=== PATIENT | male | born 1970 | race Caucasian/White ===

== ENCOUNTER 2019-05-20 22:22 | Emergency (ER) | payer SELFPAY ==
[2019-05-20] MEDS ORDERED: HYDROmorphone 2 MG/ML Syringe IVPUSH ONE ×2 (22:30→22:57)
[2019-05-20] MEDS ORDERED: Ondansetron 4 MG/2 ML SDV IVPUSH ONE (22:30)
[2019-05-20] MEDS ORDERED: Sodium Chloride 0.9% 1,000 ML IV ONE (22:31)
[2019-05-20] MEDS ORDERED: Ketorolac 30 MG/ML SDV IVPUSH ONE (22:33)
--- NOTE | 2019-05-20 22:37 | EDM.PDOC ---
<Alexandra Tomas - Last Filed: 05/21/19 01:54> ED HPI GENERAL MEDICAL PROBLEM - General Stated Complaint: PT HAS BODY PAIN Time Seen by Provider: 05/20/19 22:32 - History of Present Illness INITIAL COMMENTS - FREE TEXT/NARRATIVE: This is Dr. Tomas dictating addendum note as I am the attending supervising on this case and I assumed care of this case at 12 midnight. This case was called as a trauma alert as there was a high mechanism of force with the fall. Dr. Fay is aware of this case and is in fact in the ED to quickly evaluate the patient and to review the CT scans. She was made aware of this case due to the fact that the patient was resisting laying down due to significant pain and anxiety. After receiving Dilaudid Toradol Ativan and Haldol he was able to lay down. The scans have been reviewed briefly by Dr. Fay and formal reports will be called to her as needed pending those results. The patient is much more comfortable here in the ED and he will be given maintenance fluids until we are further able to obtain these testing results. Please add to physical exam above the back exam which revealed no midline step- offs tenderness or defects of the thoracic or lumbar spine no posterior rib or posterior pelvis tenderness and no visible evidence of any contusion abrasion or ecchymosis. After the patient returned from CT and I started reviewing the CT scan images I personally examined the patient and I have discussed the CT scan findings with the patient. The patient has no midline step-offs tenderness or defects of the cervical spine and he says that the findings that I am relaying to him about his spinal stenosis and disc disease is not new to him. He has no upper extremity weakness numbness or tingling and has full range of motion of his upper extremities. He has full motor and sensory of his lower extremities as well but he has discomfort with movement of his left leg. On palpation of his pelvis the ring appears to be stable but there is palpable pubic diastases and there is no scrotal hematoma or priapism. The patient has tenderness in the left groin area as well without any hematoma or swelling and he has actually no abdominal tenderness distention or issues. The patient had his c-collar removed by me in light of his lack of tenderness on exam and that the findings on CAT scan are not new or different. The patient denies alcohol use this evening and it is unclear if the patient had any loss of consciousness from his report and EMS report and if there was any it was very brief. Telemetry nursing and me that he had pain when he was sitting on the ball and a bull was bucking and moving and the pain got worse after the fall. I discussed this case with the trauma surgeon at at 1:16 AM, Dr. Jones, who feels that this is an orthopedics case and that from a trauma perspective she does not have much input. I discussed this case with the orthopedic surgeon at , Dr. Aponte, at 1:24 AM. He would like to review the images to see what his care plan would be before we send him to [facility] and [place]. I am currently awaiting his return phone call. He feels that the patient should have a trauma consult and is unsure if that will be done by his trauma surgeon or by Dr. Fay. I will await his return phone call to make that decision a determination for transfer and further care. The patient is aware of these conversations and concerns with the CT scan findings. C- Collar was replaced by nursing due to the mechanism of injury and the fact that the patient is being transferred. 0140: Dr Aponte recontacted me and said that at this point he is reviewing the images but feels that the patient should be transferred to [facility] under the trauma service and he will evaluate the patient and the CT scans once he is clear from a trauma perspective and discussed it with the special pelvic surgeon who is not currently shock absorption floor layer. I discussed this case with the ER physician, Dr. Huynh, at 1:47 AM who is aware of my conversations with the trauma surgeon and orthopedics at his hospital and he is accepting of the transfer. Ground ambulance will be arranged as the patient is hemodynamically stable. Patient is receiving maintenance LR IV fluids and is nothing by mouth and has received more pain medication. All images have been pushed to the receiving hospital and all labs will also be forwarded. Critical care time including procedures:45min Dr. Fay our trauma surgeon was involved in this case earlier but not did not physically examine the patient Impression: Pelvic injury, left SI joint and pubic symphysis status post blunt trauma Incidental findings on CAT scans in abdomen such as cholelithiasis and nephrolithiasis, extensive disc disease in the cervical spine with history of same stable - Related Data Allergies Allergy/AdvReac Type Severity Reaction Status Date / Time No Known Allergies Allergy Verified 05/20/19 22:50 Home Meds: Home Meds . [No Known Home Meds] 05/20/19 [History] ED ROS GENERAL - Review of Systems Review Of Systems: ROS reveals no pertinent complaints other than HPI. Course - Vital Signs Last Recorded V/S: Last Vital Signs Temp 35.9 C 05/21/19 02:00 Pulse 104 H 05/21/19 02:30 Resp 16 05/21/19 02:30 BP 105/53 L 05/21/19 02:30 Pulse Ox 92 L 05/21/19 02:30 - Orders/Labs/Meds Labs: Laboratory Tests 05/20/19 05/20/19 05/20/19 Range/Units 22:38 22:38 22:38 WBC 17.40 H (4.0-11.0) K/uL RBC 4.86 (4.50-5.90) M/uL Hgb 15.2 (13.0-17.0) g/dL Hct 43.9 (38.0-50.0) % MCV 90.3 (80.0-98.0) fL MCH 31.3 (27.0-32.0) pg MCHC 34.6 (31.0-37.0) g/dL RDW Std Deviation 43.8 (28.0-62.0) fl RDW Coeff of Leroy 13 (11.0-15.0) % Plt Count 341 (150-400) K/uL MPV 9.90 (7.40-12.00) fL Neut % (Auto) 78.3 (48.0-80.0) % Lymph % (Auto) 14.7 L (16.0-40.0) % [place] % (Auto) 6.7 (0.0-15.0) % Eos % (Auto) 0.1 (0.0-7.0) % Baso % (Auto) 0.2 (0.0-1.5) % Neut # (Auto) 13.6 H (1.4-5.7) K/uL Lymph # (Auto) 2.6 H (0.6-2.4) K/uL [place] # (Auto) 1.2 H (0.0-0.8) K/uL Eos # (Auto) 0.0 (0.0-0.7) K/uL Baso # (Auto) 0.0 (0.0-0.1) K/uL Nucleated RBC % 0.0 /100WBC Nucleated RBCs # 0 K/uL INR 1.07 Sodium 141 (136-148) mmol/L Potassium 3.0 L (3.5-5.1) mmol/L Chloride 104 (98-107) mmol/L Carbon Dioxide 22.9 (21.0-32.0) mmol/L BUN 22 H (7.0-18.0) mg/dL Creatinine 1.6 H (0.8-1.3) mg/dL Est Cr Clr Drug Dosing TNP Estimated GFR (MDRD) 46.6 ml/min Glucose 160 H (74-106) mg/dL Calcium 9.1 (8.5-10.1) mg/dL Total Bilirubin 0.8 (0.2-1.0) mg/dL AST 22 (15-37) IU/L ALT 32 (14-63) IU/L Alkaline Phosphatase 60 (46-116) U/L Creatine Kinase 351 H (26-308) U/L Total Protein 7.8 (6.4-8.2) g/dL Albumin 4.6 (3.4-5.0) g/dL Globulin 3.2 (2.6-4.0) g/dL Albumin/Globulin Ratio 1.4 (0.9-1.6) Lipase 102 (73-393) U/L Urine Color Urine Appearance Urine pH (5.0-8.0) Ur Specific [place] (1.001-1.035) Urine Protein (NEGATIVE) mg/dL Urine Glucose (UA) (NEGATIVE) mg/dL Urine Ketones (NEGATIVE) mg/dL Urine Occult Blood (NEGATIVE) Urine Nitrite (NEGATIVE) Urine Bilirubin (NEGATIVE) Urine Urobilinogen (<2.0) EU/dL Ur Leukocyte Esterase (NEGATIVE) Urine RBC (0-2/HPF) Urine WBC (0-5/HPF) Ur Epithelial Cells (NONE-FEW) Urine Bacteria (NEGATIVE) Urine Mucus (NONE-MOD) 05/21/19 Range/Units 02:15 WBC (4.0-11.0) K/uL RBC (4.50-5.90) M/uL Hgb (13.0-17.0) g/dL Hct (38.0-50.0) % MCV (80.0-98.0) fL MCH (27.0-32.0) pg MCHC (31.0-37.0) g/dL RDW Std Deviation (28.0-62.0) fl RDW Coeff of Leroy (11.0-15.0) % Plt Count (150-400) K/uL MPV (7.40-12.00) fL Neut % (Auto) (48.0-80.0) % Lymph % (Auto) (16.0-40.0) % [place] % (Auto) (0.0-15.0) % Eos % (Auto) (0.0-7.0) % Baso % (Auto) (0.0-1.5) % Neut # (Auto) (1.4-5.7) K/uL Lymph # (Auto) (0.6-2.4) K/uL [place] # (Auto) (0.0-0.8) K/uL Eos # (Auto) (0.0-0.7) K/uL Baso # (Auto) (0.0-0.1) K/uL Nucleated RBC % /100WBC Nucleated RBCs # K/uL INR Sodium (136-148) mmol/L Potassium (3.5-5.1) mmol/L Chloride (98-107) mmol/L Carbon Dioxide (21.0-32.0) mmol/L BUN (7.0-18.0) mg/dL Creatinine (0.8-1.3) mg/dL Est Cr Clr Drug Dosing Estimated GFR (MDRD) ml/min Glucose (74-106) mg/dL Calcium (8.5-10.1) mg/dL Total Bilirubin (0.2-1.0) mg/dL AST (15-37) IU/L ALT (14-63) IU/L Alkaline Phosphatase (46-116) U/L Creatine Kinase (26-308) U/L Total Protein (6.4-8.2) g/dL Albumin (3.4-5.0) g/dL Globulin (2.6-4.0) g/dL Albumin/Globulin Ratio (0.9-1.6) Lipase (73-393) U/L Urine Color YELLOW Urine Appearance SLT CLOUDY Urine pH 5.5 (5.0-8.0) Ur Specific [place] 1.020 (1.001-1.035) Urine Protein NEGATIVE (NEGATIVE) mg/dL Urine Glucose (UA) NEGATIVE (NEGATIVE) mg/dL Urine Ketones 40 H (NEGATIVE) mg/dL Urine Occult Blood MODERATE H (NEGATIVE) Urine Nitrite NEGATIVE (NEGATIVE) Urine Bilirubin NEGATIVE (NEGATIVE) Urine Urobilinogen 1.0 (<2.0) EU/dL Ur Leukocyte Esterase NEGATIVE (NEGATIVE) Urine RBC 35-40 (0-2/HPF) Urine WBC 0-2 (0-5/HPF) Ur Epithelial Cells OCCASIONAL (NONE-FEW) Urine Bacteria RARE (NEGATIVE) Urine Mucus LIGHT (NONE-MOD) Meds: Medications Discontinued Medications Generic Name Dose Route Start Last Admin Trade Name Freq PRN Reason Stop Dose Admin Haloperidol Lactate 5 mg 05/20/19 23:29 05/20/19 23:35 Haldol IM 05/20/19 23:30 5 mg ONETIME ONE Administration Hydromorphone HCl 1 mg 05/20/19 22:30 05/20/19 22:36 Dilaudid IVPUSH 05/20/19 22:31 1 mg ONETIME ONE Administration Hydromorphone HCl 0.5 mg 05/20/19 22:57 05/20/19 23:03 Dilaudid IVPUSH 05/20/19 22:58 0.5 mg ONETIME ONE Administration Hydromorphone HCl 1 mg 05/21/19 01:37 05/21/19 01:42 Dilaudid IVPUSH 05/21/19 01:38 1 mg ONETIME ONE Administration Sodium Chloride 1,000 mls @ 999 mls/hr 05/20/19 22:31 05/20/19 22:36 Normal Saline IV 05/20/19 23:31 999 mls/hr STAT ONE Administration Sodium Chloride 1,000 mls @ 150 mls/hr 05/21/19 00:15 Normal Saline IV ASDIRECTED COSTA Lactated Ringer's 1,000 mls @ 150 mls/hr 05/21/19 01:00 05/21/19 01:00 Ringers, Lactated IV 150 mls/hr ASDIRECTED COSTA Administration Iopamidol 100 ml 05/21/19 00:12 05/21/19 00:12 Isovue Multipack-370 (76%) IVPUSH 05/21/19 00:13 100 ml ONETIME STA Administration Ketorolac Tromethamine 30 mg 05/20/19 22:33 05/20/19 22:37 Toradol IVPUSH 05/20/19 22:34 30 mg ONETIME ONE Administration Lorazepam 1 mg 05/20/19 23:14 05/20/19 23:19 Ativan IVPUSH 05/20/19 23:15 1 mg ONETIME ONE Administration Ondansetron HCl 4 mg 05/20/19 22:30 05/20/19 22:36 Zofran IVPUSH 05/20/19 22:31 4 mg ONETIME ONE Administration Departure - Departure Time of Disposition: 01:58 Disposition: DC/Tfer to Acute Hospital 02 Condition: Fair Clinical Impression: Pelvic injury Qualifiers: Encounter type: initial encounter Qualified Code(s): S39.93XA - Unspecified injury of pelvis, initial encounter - Discharge Information Referrals: PCP,None [Primary Care Provider] - Forms: ED Department Discharge <HudsonNataly - Last Filed: 05/21/19 09:58> ED HPI GENERAL MEDICAL PROBLEM - General Source of Information: Reports: Patient History Limitations: Reports: No Limitations - History of Present Illness INITIAL COMMENTS - FREE TEXT/NARRATIVE: HISTORY AND PHYSICAL: History of present illness: Patient is a 48-year-old male presents to the ED today via EMS with concern of loss of consciousness, and low back pain/hip pain after patient was riding a bull and fell off the bed. Patient is not typically a provider was riding a bull for a lorena event. Patient states he does not remember what happened but states [facility] before EMS was called. Patient states he is not sure how long he was unconscious for but told that it was brief. Patient states his only complaint today in the ED is left-sided hip/low back pain. Patient denies fever, chills, chest pain, shortness of breath, or cough. Denies headache, neck stiff ness, change in vision. Denies nausea, vomiting, abdominal pain, diarrhea, constipation, or dysuria. Review of systems: As per history of present illness and below otherwise all systems reviewed and negative. Past medical history: As per history of present illness and as reviewed below otherwise noncontributory. Surgical history: As per history of present illness and as reviewed below otherwise noncontributory. Social history: See social history for further information Family history: As per history of present illness and as reviewed below otherwise noncontributory. Physical exam: General: Patient is alert, oriented, and in no acute distress. Patient sitting on exam table with full body airsplint in place from EMS and cervical collar in sitting position. HEENT: Atraumatic, normocephalic, pupils equal and reactive bilaterally, negative for conjunctival pallor or scleral icterus, mucous membranes moist, TMs normal bilaterally, throat clear, neck supple, nontender, trachea midline. No drooling or trismus noted. No meningeal signs. No hot potato voice noted. Lungs: Clear to auscultation, breath sounds equal bilaterally, chest nontender. Heart: S1S2, regular rate and rhythm without overt murmur Abdomen: Soft, nondistended, nontender. Negative for masses or hepatosplenomegaly. Negative for costovertebral tenderness. Pelvis: Stable nontender. Genitourinary: Deferred. Rectal: Deferred. Skin: Intact, warm, dry. No lesions or rashes noted. Extremities/musculoskeletal: Negative for cords or calf pain. Neurovascular unremarkable. No obvious deformity of bilateral upper or bilateral lower extremities. No obvious deformity of complete spine. No step offs, crepitus, or point tenderness to palpation of complete spine / spinous processes. Neuro: Awake, alert, oriented. Cranial nerves II through XII unremarkable. Cerebellum unremarkable. Motor and sensory unremarkable throughout. Exam nonfocal. Notes: Trauma alert was called in route to ED. Dr. Tomas directly involved in patient care. Patient is adamant about not laying on his back and we are having difficulties getting him on his back for imaging. Dr. Tomas has assumed care of patient and will follow all remaining diagnostics and disposition. Diagnostics: Head CT, cervical spine CT, thoracic CT, lumbar CT, chest CT, abdominal pelvic CT, CBC, CMP, CPK, lipase, INR, UA Therapeutics: Dilaudid, Zofran, Toradol, Ativan, Haldol Prescription: Impression: Left sided hip pain Low back pain Plan: Definitive disposition and diagnosis as appropriate pending reevaluation and review of above. left side body & back area Pain Score (Numeric/FACES): 10 ED ROS GENERAL - Review of Systems Review Of Systems: ROS reveals no pertinent complaints other than HPI. ED EXAM, GENERAL - Physical Exam Exam: See Below (See dictation) Course - Vital Signs Last Recorded V/S: Last Vital Signs Temp 35.9 C 05/21/19 02:00 Pulse 104 H 05/21/19 02:30 Resp 16 05/21/19 02:30 BP 105/53 L 05/21/19 02:30 Pulse Ox 92 L 05/21/19 02:30 - Orders/Labs/Meds Labs: Laboratory Tests 05/20/19 05/20/19 05/20/19 Range/Units 22:38 22:38 22:38 WBC 17.40 H (4.0-11.0) K/uL RBC 4.86 (4.50-5.90) M/uL Hgb 15.2 (13.0-17.0) g/dL Hct 43.9 (38.0-50.0) % MCV 90.3 (80.0-98.0) fL MCH 31.3 (27.0-32.0) pg MCHC 34.6 (31.0-37.0) g/dL RDW Std Deviation 43.8 (28.0-62.0) fl RDW Coeff of Leroy 13 (11.0-15.0) % Plt Count 341 (150-400) K/uL MPV 9.90 (7.40-12.00) fL Neut % (Auto) 78.3 (48.0-80.0) % Lymph % (Auto) 14.7 L (16.0-40.0) % [place] % (Auto) 6.7 (0.0-15.0) % Eos % (Auto) 0.1 (0.0-7.0) % Baso % (Auto) 0.2 (0.0-1.5) % Neut # (Auto) 13.6 H (1.4-5.7) K/uL Lymph # (Auto) 2.6 H (0.6-2.4) K/uL [place] # (Auto) 1.2 H (0.0-0.8) K/uL Eos # (Auto) 0.0 (0.0-0.7) K/uL Baso # (Auto) 0.0 (0.0-0.1) K/uL Nucleated RBC % 0.0 /100WBC Nucleated RBCs # 0 K/uL INR 1.07 Sodium 141 (136-148) mmol/L Potassium 3.0 L (3.5-5.1) mmol/L Chloride 104 (98-107) mmol/L Carbon Dioxide 22.9 (21.0-32.0) mmol/L BUN 22 H (7.0-18.0) mg/dL Creatinine 1.6 H (0.8-1.3) mg/dL Est Cr Clr Drug Dosing TNP Estimated GFR (MDRD) 46.6 ml/min Glucose 160 H (74-106) mg/dL Calcium 9.1 (8.5-10.1) mg/dL Total Bilirubin 0.8 (0.2-1.0) mg/dL AST 22 (15-37) IU/L ALT 32 (14-63) IU/L Alkaline Phosphatase 60 (46-116) U/L Creatine Kinase 351 H (26-308) U/L Total Protein 7.8 (6.4-8.2) g/dL Albumin 4.6 (3.4-5.0) g/dL Globulin 3.2 (2.6-4.0) g/dL Albumin/Globulin Ratio 1.4 (0.9-1.6) Lipase 102 (73-393) U/L Urine Color Urine Appearance Urine pH (5.0-8.0) Ur Specific [place] (1.001-1.035) Urine Protein (NEGATIVE) mg/dL Urine Glucose (UA) (NEGATIVE) mg/dL Urine Ketones (NEGATIVE) mg/dL Urine Occult Blood (NEGATIVE) Urine Nitrite (NEGATIVE) Urine Bilirubin (NEGATIVE) Urine Urobilinogen (<2.0) EU/dL Ur Leukocyte Esterase (NEGATIVE) Urine RBC (0-2/HPF) Urine WBC (0-5/HPF) Ur Epithelial Cells (NONE-FEW) Urine Bacteria (NEGATIVE) Urine Mucus (NONE-MOD) 05/21/19 Range/Units 02:15 WBC (4.0-11.0) K/uL RBC (4.50-5.90) M/uL Hgb (13.0-17.0) g/dL Hct (38.0-50.0) % MCV (80.0-98.0) fL MCH (27.0-32.0) pg MCHC (31.0-37.0) g/dL RDW Std Deviation (28.0-62.0) fl RDW Coeff of Leroy (11.0-15.0) % Plt Count (150-400) K/uL MPV (7.40-12.00) fL Neut % (Auto) (48.0-80.0) % Lymph % (Auto) (16.0-40.0) % [place] % (Auto) (0.0-15.0) % Eos % (Auto) (0.0-7.0) % Baso % (Auto) (0.0-1.5) % Neut # (Auto) (1.4-5.7) K/uL Lymph # (Auto) (0.6-2.4) K/uL [place] # (Auto) (0.0-0.8) K/uL Eos # (Auto) (0.0-0.7) K/uL Baso # (Auto) (0.0-0.1) K/uL Nucleated RBC % /100WBC Nucleated RBCs # K/uL INR Sodium (136-148) mmol/L Potassium (3.5-5.1) mmol/L Chloride (98-107) mmol/L Carbon Dioxide (21.0-32.0) mmol/L BUN (7.0-18.0) mg/dL Creatinine (0.8-1.3) mg/dL Est Cr Clr Drug Dosing Estimated GFR (MDRD) ml/min Glucose (74-106) mg/dL Calcium (8.5-10.1) mg/dL Total Bilirubin (0.2-1.0) mg/dL AST (15-37) IU/L ALT (14-63) IU/L Alkaline Phosphatase (46-116) U/L Creatine Kinase (26-308) U/L Total Protein (6.4-8.2) g/dL Albumin (3.4-5.0) g/dL Globulin (2.6-4.0) g/dL Albumin/Globulin Ratio (0.9-1.6) Lipase (73-393) U/L Urine Color YELLOW Urine Appearance SLT CLOUDY Urine pH 5.5 (5.0-8.0) Ur Specific [place] 1.020 (1.001-1.035) Urine Protein NEGATIVE (NEGATIVE) mg/dL Urine Glucose (UA) NEGATIVE (NEGATIVE) mg/dL Urine Ketones 40 H (NEGATIVE) mg/dL Urine Occult Blood MODERATE H (NEGATIVE) Urine Nitrite NEGATIVE (NEGATIVE) Urine Bilirubin NEGATIVE (NEGATIVE) Urine Urobilinogen 1.0 (<2.0) EU/dL Ur Leukocyte Esterase NEGATIVE (NEGATIVE) Urine RBC 35-40 (0-2/HPF) Urine WBC 0-2 (0-5/HPF) Ur Epithelial Cells OCCASIONAL (NONE-FEW) Urine Bacteria RARE (NEGATIVE) Urine Mucus LIGHT (NONE-MOD)
[2019-05-20] MEDS ORDERED: LORazepam 2 MG/ML SDV IVPUSH ONE (23:14)
[2019-05-20 23:19] LABS: BLOOD UREA NITROGEN,BUN 22 mg/dL (7.0-18.0); CARBON DIOXIDE,CO2 22.9 mmol/L (21.0-32.0); CHLORIDE,CL 104 mmol/L (98-107); GLUCOSE RANDOM 160 mg/dL (74-106); LIPASE 102 U/L (73-393); SODIUM,NA 141 mmol/L (136-148)
[2019-05-20] MEDS ORDERED: Haloperidol Lactate 5 MG/ML SDV IM ONE (23:29)
[2019-05-21] MEDS ORDERED: Iopamidol 755 MG/ML 500 ML Multipack Bottle IVPUSH STA (00:12)
[2019-05-21] MEDS ORDERED: Sodium Chloride 0.9% 1,000 ML IV SCH (00:15)
--- NOTE | 2019-05-21 00:44 | CT ---
INDICATION: Both overriding, fell off TECHNIQUE: CT abdomen and pelvis acquired with 100 cc Isovue 370 IV contrast. COMPARISON: None FINDINGS: Lower chest: Unremarkable. Liver: Unremarkable. Spleen: Unremarkable. Pancreas: Unremarkable. Gallbladder and bile ducts: Cholelithiasis. Adrenal glands: Unremarkable. Kidneys: There are several hypodensities on both kidneys which measure greater than 20 Hounsfield units in density. Punctate nonobstructive stones in the left kidney. Single punctate stone in the right kidney. No hydronephrosis. GI tract: Unremarkable. Vascular structures: Unremarkable. Lymph nodes: Unremarkable. Miscellaneous: Unremarkable. No free air or significant free fluid. Pelvic Organs: Unremarkable. Bones: Mild widening of the left sacroiliac joint. Diastasis of the pubic symphysis measuring 2.8 cm. There is fat stranding anterior to the pubic symphysis. No significant extraperitoneal pelvic hematoma. IMPRESSION: No organ injury within the abdomen or pelvis. Diastasis of the pubic symphysis with small amount of anterior hematoma. Mild widening of the left sacroiliac joint. No pelvic bone fracture. Recommend orthopedic surgery consultation. Cholelithiasis. Several indeterminate renal lesions bilaterally. Recommend nonemergent renal CT for further characterization. Bilateral nonobstructive nephrolithiasis. Please note that all CT scans at this facility use dose modulation, iterative reconstruction, and/or weight-based dosing when appropriate to reduce radiation dose to as low as reasonably achievable. Dictated by Michelle Gonzalez MD @ May 21 2019 12:43AM Signed by Dr. Michelle Gonzalez @ May 21 2019 12:43AM
--- NOTE | 2019-05-21 00:44 | CT ---
INDICATION: Status post fall while bull riding. COMPARISON: None available. TECHNIQUE: CT examination of the head was performed with 3 mm thick axial sections without intravenous contrast. Images were obtained from the vertex of the skull through the skull base, and I examined the images with the brain and bone windows. Please note that all CT scans at this facility use dose modulation, iterative reconstruction, and/or weight-based dosing when appropriate to reduce radiation dose to as low as reasonably achievable. FINDINGS: : The brain is normal in appearance for the patient`s age on today`s study, with no sign of mass lesion, mass effect, hemorrhage, or edema. The ventricles and sulci are normal in appearance for the patient`s age. The visualized portions of the orbits are normal in appearance. The visualized portions of the paranasal sinuses and mastoids are clear. The osseous structures are normal in their appearance with no sign of abnormality in the skull base or calvarium. IMPRESSION: No sign of closed head injury. Normal noncontrast CT of the head for the patient`s age. Please note that all CT scans at this facility use dose modulation, iterative reconstruction, and/or weight-based dosing when appropriate to reduce radiation dose to as low as reasonably achievable. Dictated by Jim Hatch MD @ May 21 2019 12:41AM Signed by Dr. Jim Hatch @ May 21 2019 12:43AM
--- NOTE | 2019-05-21 00:49 | CT ---
INDICATION: Status post fall while bull riding. COMPARISON: None available TECHNIQUE: CT examination of the cervical spine is performed without contrast using spiral technique. 2 mm thick axial, sagittal and coronal reconstructions were made. Please note that all CT scans at this facility use dose modulation, iterative reconstruction, and/or weight-based dosing when appropriate to reduce radiation dose to as low as reasonably achievable. FINDINGS: : There is no sign of fracture or subluxation. The cervical vertebral bodies are normal in height and are in anatomic alignment. There is no sign of prevertebral soft tissue swelling. There is moderate disc degenerative disease at the C5-6 and C6-7. At C5-6, there is a moderate central disc protrusion with posterior osteophytic ridging which appears to come into contact with the anterior cervical cord and may result in spinal stenosis. Moderate left and mild right foraminal stenosis at this level. At C6-7, there is moderate right and mild left disc bulging with posterior osteophytic ridging which probably comes into contact with the anterior cervical cord and results in spinal stenosis. There is moderate bilateral foraminal stenosis at this level from uncovertebral joint hypertrophy. At C3-4, there is moderate right paramedian disc bulging with posterior osteophytic ridging which probably comes into contact with the anterior cervical cord and results in spinal stenosis. No foraminal stenosis. The other intervertebral discs are normal in appearance. There is no sign of additional disc degenerative disease or disc bulge or herniation. The airway structures are normal in appearance. The visualized skull base is normal in appearance. Brain detail is extremely limited by the use of bone technique, but no gross abnormality is seen. The apices of the lungs are clear. IMPRESSION: No sign of acute injury to the cervical spine. Degenerative changes at C5-6, C6-7, and C3-4 as described above with probable spinal stenosis. Recommend correlation with MRI of the cervical spine on a nonemergent basis if cervical spinal stenosis is of clinical concern. Please note that all CT scans at this facility use dose modulation, iterative reconstruction, and/or weight-based dosing when appropriate to reduce radiation dose to as low as reasonably achievable. Dictated by Jim Hatch MD @ May 21 2019 12:43AM Signed by Dr. Jim Hatch @ May 21 2019 12:48AM
--- NOTE | 2019-05-21 00:51 | CT ---
INDICATION: Bull riding, fell off TECHNIQUE: CT chest was acquired with 100 cc Isovue 370 IV contrast. COMPARISON: None FINDINGS: Cardiovascular structures: Heart size is normal. Thoracic aorta and main pulmonary artery are normal in caliber. Mediastinum and kira: No mass or adenopathy. Lungs: Clear. Pleura and pericardium: No effusions. Chest wall and axilla: No mass or adenopathy. Upper abdomen: Unremarkable. Bones: No significant findings. IMPRESSION: Unremarkable chest CT. Please note that all CT scans at this facility use dose modulation, iterative reconstruction, and/or weight-based dosing when appropriate to reduce radiation dose to as low as reasonably achievable. Dictated by Michelle Gonzalez MD @ May 21 2019 12:43AM Signed by Dr. Michelle Gonzalez @ May 21 2019 12:49AM
--- NOTE | 2019-05-21 00:53 | CT ---
INDICATION: Bull riding, fell off TECHNIQUE: CT lumbar spine without contrast. COMPARISON: None FINDINGS: Vertebral alignment: Alignment is normal. Vertebrae: There are no fractures or suspicious bony lesions. There is widening of the left sacroiliac joint. Discs and facet joints: Mild degenerative changes at L4-L5. Extraspinal findings: Prevertebral soft tissues and visualized retroperitoneum are unremarkable. IMPRESSION: No lumbar spine fracture or subluxation. Acute widening of the left sacroiliac joint. Please note that all CT scans at this facility use dose modulation, iterative reconstruction, and/or weight-based dosing when appropriate to reduce radiation dose to as low as reasonably achievable. Dictated by Michelle Gonzalez MD @ May 21 2019 12:51AM Signed by Dr. Michelle Gonzalez @ May 21 2019 12:51AM
--- NOTE | 2019-05-21 00:55 | CT ---
INDICATION: Bull riding, fell off TECHNIQUE: CT thoracic spine without contrast. COMPARISON: None FINDINGS: Vertebral alignment: Alignment is normal. Vertebrae: There are no fractures or suspicious bony lesions. Discs and facet joints: Disc spaces and facets are within normal limits. Extraspinal findings: Prevertebral soft tissues, visualized airway, and visualized lungs are unremarkable. IMPRESSION: Unremarkable thoracic spine CT. Please note that all CT scans at this facility use dose modulation, iterative reconstruction, and/or weight-based dosing when appropriate to reduce radiation dose to as low as reasonably achievable. Dictated by Michelle Gonzalez MD @ May 21 2019 12:53AM Signed by Dr. Michelle Gonzalez @ May 21 2019 12:54AM
[2019-05-21] MEDS ORDERED: Lactated Ringers 1,000 ML IV SCH (01:00)
[2019-05-21] MEDS ORDERED: HYDROmorphone 1 MG/ML Syringe IVPUSH ONE (01:37)
== END 2019-05-21 02:42 ==
LOC: MW.ED 22:22
DX: S39.93XA Unspecified injury of pelvis, initial encounter (principal); S39.92XA Unspecified injury of lower back, initial encounter; M25.552 Pain in left hip; R10.32 Left lower quadrant pain; F41.9 Anxiety disorder, unspecified; V80.010A Animal-rider injured by fall from or being thrown from horse in noncollision accident, initial encounter
CPT/HCPCS: 36415; 70450; 71260; 72125; 72128; 72131; 74177; 80053; 81001; 82550; 83690; 85025; 85610; 96361; 96372; 96374; 96375; 96376; 99285; J1170; J1630; J1885; J2060; J2405; J7040; J7120; Q9967